=== PATIENT | male | born 1970 | race Caucasian/White ===

== ENCOUNTER 2022-12-31 13:09 | Emergency (ER) | payer BC ==
[~2022-12-31] VITALS: Ht 180.3 cm; Wt 111.6 kg
[2022-12-31 13:10] VITALS: BP_SYST 183
--- NOTE | 2022-12-31 13:14 | NUR ---
Patient triaged and placed in waiting room. VSS and patient appears in no acute distress at this time. Accompanied by SELF, awaiting available bed, and MD notified of need for MSE.
--- NOTE | 2022-12-31 15:00 | NUR ---
ER at bedside examining patient.
--- NOTE | 2022-12-31 16:00 | NUR ---
Patient given written and verbal discharge instructions and verbalizes understanding. ER MD discussed with patient the results and treatment provided. Patient in stable condition. ID arm band removed. Patient educated on pain management and to follow up with PMD. Opportunity for questions provided and answered. Medication side effect fact sheet provided.
[2022-12-31 16:13] VITALS: BP_SYST 178
== END 2022-12-31 16:00 | disposition home or self-care (01) ==
LOC: SED 13:09
DX: H43.11 Vitreous hemorrhage, right eye (principal); H43.811 Vitreous degeneration, right eye; H53.8 Other visual disturbances; E11.9 Type 2 diabetes mellitus without complications; I10 Essential (primary) hypertension; Z79.899 Other long term (current) drug therapy
CPT/HCPCS: 99284